=== PATIENT | female | born 1955 | race Caucasian/White ===

== ENCOUNTER 2021-06-28 17:40 | Observation (INO) ==
[2021-06-28] MEDS ORDERED: ASPIRIN 325 MG TABLET PO STA (18:06)
[2021-06-28 18:43] LABS: Basophils # 0.1 10*3/uL (0.0-0.2); Basophils % 0.6 % (0.0-0.8); Eosinophils % 0.1 % (0.00-10.9); Hemoglobin 12.2 GM/DL (12.0-16.0); Immature Granulocytes % 2.1 %; Immature Granulocytes Absolute 0.48 #; Lymphocytes % 12.9 % (21.3-54.2); Mean Corpuscular HGB Conc 31.3 GM/DL (32-36); Monocytes % 14.7 % (1.7-12.7); Neutrophils % 69.6 % (38.7-73.9); Platelet Count 226 T/CUMM (130-400); Red Blood Count 4.15 MC/CUMM (3.8-5.5); Red Cell Distribution Width 15.7 % (9.3-17.3); White Blood Count 22.9 T/CUMM (4-12)
[2021-06-28 18:55] LABS: INR 1.2
[2021-06-28 19:01] LABS: Albumin 4.1 G/DL (3.4-5.0); Bilirubin,Total 0.4 MG/DL (0.20-1.00); Calcium 9.1 MG/DL (8.5-10.1); Osmolality,Calculated 274.1 MOS/KG (273-304); Potassium 4.5 MMOL/L (3.5-5.1); Total Protein 6.8 G/DL (6.4-8.2)
[2021-06-28 19:20] LABS: Lymphocytes 17 % (20-55); Segmented Neutrophils 70 % (50-85); Total Cells Counted 100
[2021-06-28 19:21] LABS: Anisocytosis Slight; Hypochromasia Slight; Macrocytosis Slight; Microcytosis Slight; Platelet Estimate Normal
[2021-06-28] MEDS ORDERED: ENOXAPARIN 60 MG/0.6 ML SYRINGE SUBCUT STA (19:28)
[2021-06-28] MEDS ORDERED: ENOXAPARIN 80 MG/0.8 ML SYRINGE SUBCUT ONE (19:30)
[2021-06-28] MEDS ORDERED: SODIUM CHLORIDE 0.9% 1,000 ML IV STA (19:31)
[2021-06-28] MEDS ORDERED: ONDANSETRON 4 MG/2 ML VIAL IV PRN (20:06)
[2021-06-28] MEDS ORDERED: DEXTROSE 50% 25 GM/50 ML VIAL IV PRN (20:06)
[2021-06-28] MEDS ORDERED: GLUCAGON 1 MG VIAL IM PRN (20:06)
[2021-06-28] MEDS ORDERED: hydrALAZINE 20 MG/1 ML VIAL IV PRN (20:06)
[2021-06-28] MEDS ORDERED: ACETAMINOPHEN 325 MG TABLET PO PRN (20:06)
[2021-06-28] MEDS ORDERED: MORPHINE 2 MG/1 ML SYRINGE IV PRN (20:43)
[2021-06-28] MEDS ORDERED: traMADol 50 MG TABLET PO PRN (20:45)
[2021-06-28] MEDS: SODIUM CHLORIDE 0.9% 1,000 ML IV SCH (21:16)
[2021-06-28] MEDS: CLORAZEPATE 3.75 MG TABLET PO SCH (22:38)
[2021-06-29] MEDS: SODIUM CHLORIDE 0.9% 1,000 ML IV SCH ×3 (04:40→14:01)
[2021-06-29 06:43] LABS: Basophils # 0.1 10*3/uL (0.0-0.2); Basophils % 0.8 % (0.0-0.8); Eosinophils # 0.1 10*3/uL (0.0-0.87); Eosinophils % 0.4 % (0.00-10.9); Immature Granulocytes % 1.7 %; Immature Granulocytes Absolute 0.29 #; Lymphocytes # 3.6 10*3/uL (1.4-4.0); Lymphocytes % 21.6 % (21.3-54.2); Mean Corpuscular HGB Conc 30.9 GM/DL (32-36); Mean Corpuscular Volume 93.8 FL (87-102); Mean Platelet Volume 12.8 FL (9.6-12.0); Monocytes % 15.6 % (1.7-12.7); Neutrophils % 59.9 % (38.7-73.9); Platelet Count 193 T/CUMM (130-400); Red Blood Count 3.52 MC/CUMM (3.8-5.5); Red Cell Distribution Width 15.7 % (9.3-17.3); White Blood Count 16.6 T/CUMM (4-12)
[2021-06-29 06:44] LABS: Hemoglobin 10.2 GM/DL (12.0-16.0)
[2021-06-29 07:02] LABS: Hypochromasia 1+; Lymphocytes 24 % (20-55); Microcytosis 1+; Platelet Estimate Adequate; Segmented Neutrophils 63 % (50-85); Total Cells Counted 100
[2021-06-29 07:05] LABS: Calcium 8.8 MG/DL (8.5-10.1); Osmolality,Calculated 277.7 MOS/KG (273-304); Potassium 4.2 MMOL/L (3.5-5.1); Risk Ratio 6.36; Thyroid Stimulating Hormone 2.98 uIU/ml (0.358-3.74); VLDL Cholesterol 23.8 MG/DL
[2021-06-29] MEDS ORDERED: ENOXAPARIN 100 MG/ML SYRINGE SUBCUT SCH (08:00)
[2021-06-29] MEDS: allopurinoL 300 MG TABLET PO SCH (09:56)
[2021-06-29] MEDS: ASPIRIN 325 MG TABLET PO SCH (09:57)
[2021-06-29] MEDS: CLORAZEPATE 3.75 MG TABLET PO SCH ×2 (09:57→21:58)
[2021-06-29] MEDS: PANTOPRAZOLE 40 MG TABLET PO SCH (09:57)
[2021-06-29] MEDS: FERROUS SULFATE 325 MG TABLET PO SCH (09:57)
[2021-06-29] MEDS: amLODIPine 5 MG TABLET PO SCH (15:48)
[2021-06-30] MEDS: SODIUM CHLORIDE 0.9% 1,000 ML IV SCH (03:14)
[2021-06-30] MEDS: allopurinoL 300 MG TABLET PO SCH (09:23)
[2021-06-30] MEDS: CLORAZEPATE 3.75 MG TABLET PO SCH ×2 (09:24→21:17)
[2021-06-30] MEDS: FERROUS SULFATE 325 MG TABLET PO SCH (09:24)
[2021-06-30] MEDS: amLODIPine 5 MG TABLET PO SCH (09:24)
[2021-06-30] MEDS: ASPIRIN 325 MG TABLET PO SCH (09:24)
[2021-06-30] MEDS: PANTOPRAZOLE 40 MG TABLET PO SCH (09:25)
[2021-06-30 13:11] LABS: Basophils # 0.1 10*3/uL (0.0-0.2); Basophils % 0.6 % (0.0-0.8); Eosinophils # 0.1 10*3/uL (0.0-0.87); Eosinophils % 0.5 % (0.00-10.9); Hematocrit 33.7 VOL% (35.7-47.0); Hemoglobin 10.4 GM/DL (12.0-16.0); Immature Granulocytes % 2.2 %; Immature Granulocytes Absolute 0.38 #; Lymphocytes # 2.5 10*3/uL (1.4-4.0); Lymphocytes % 14.8 % (21.3-54.2); Mean Corpuscular HGB Conc 30.9 GM/DL (32-36); Mean Corpuscular Volume 94.9 FL (87-102); Mean Platelet Volume 13.2 FL (9.6-12.0); Monocytes % 14.2 % (1.7-12.7); Neutrophils % 67.7 % (38.7-73.9); Platelet Count 194 T/CUMM (130-400); Red Blood Count 3.55 MC/CUMM (3.8-5.5); Red Cell Distribution Width 15.7 % (9.3-17.3); White Blood Count 17.2 T/CUMM (4-12)
[2021-06-30 13:28] LABS: Calcium 8.7 MG/DL (8.5-10.1); Osmolality,Calculated 285.1 MOS/KG (273-304); Potassium 4.5 MMOL/L (3.5-5.1)
[2021-06-30 14:45] LABS: Hypochromasia 1+; Ovalocytes Few; Platelet Estimate Adequate; Polychromasia Slight
[2021-06-30 17:08] LABS: Bilirubin,Urine Negative (Negative); Blood, Urine Negative (Negative); Glucose,Urine (UA) Negative (Negative); Ketones,Urine Negative (Negative); Nitrite,Urine Negative (Negative); Protein,Urine Negative; RBC,Urine 1 /HPF (0-4); Squamous Epithelial Cell,Urine Occasional /HPF (0-10); Urine Appearance CLEAR (Clear); Urine Color Yellow (Yellow)
[2021-07-01 05:32] LABS: Basophils # 0.1 10*3/uL (0.0-0.2); Basophils % 0.9 % (0.0-0.8); Eosinophils # 0.1 10*3/uL (0.0-0.87); Eosinophils % 0.8 % (0.00-10.9); Hematocrit 31.1 VOL% (35.7-47.0); Hemoglobin 9.7 GM/DL (12.0-16.0); Immature Granulocytes % 2.3 %; Immature Granulocytes Absolute 0.31 #; Lymphocytes # 2.6 10*3/uL (1.4-4.0); Lymphocytes % 19.8 % (21.3-54.2); Mean Corpuscular HGB Conc 31.2 GM/DL (32-36); Mean Corpuscular Volume 93.1 FL (87-102); Mean Platelet Volume 12.8 FL (9.6-12.0); Monocytes % 17.9 % (1.7-12.7); Neutrophils % 58.3 % (38.7-73.9); Platelet Count 171 T/CUMM (130-400); Red Blood Count 3.34 MC/CUMM (3.8-5.5); Red Cell Distribution Width 15.5 % (9.3-17.3); White Blood Count 13.3 T/CUMM (4-12)
[2021-07-01 05:49] LABS: Calcium 8.6 MG/DL (8.5-10.1); Potassium 4.4 MMOL/L (3.5-5.1)
[2021-07-01 05:54] LABS: Eosinophils 1 % (0-10); Hypochromasia 1+; Lymphocytes 29 % (20-55); Microcytosis 1+; Platelet Estimate Adequate; Segmented Neutrophils 59 % (50-85); Total Cells Counted 100
[2021-07-01] MEDS ORDERED: LACTATED RINGERS 1,000 ML IV SCH (09:00)
[2021-07-01] MEDS ORDERED: CHOLECALCIFEROL 5,000 UNIT TABLET PO SCH (09:00)
[2021-07-01] MEDS ORDERED: ASCORBIC ACID 500 MG TABLET PO SCH (09:00)
[2021-07-01] MEDS: PANTOPRAZOLE 40 MG TABLET PO SCH (10:06)
[2021-07-01] MEDS: FERROUS SULFATE 325 MG TABLET PO SCH (10:06)
[2021-07-01] MEDS: allopurinoL 300 MG TABLET PO SCH (10:06)
[2021-07-01] MEDS: ASPIRIN 325 MG TABLET PO SCH (10:06)
[2021-07-01] MEDS: amLODIPine 5 MG TABLET PO SCH (10:16)
[2021-07-01 12:22] VITALS: BP 127/56
[2021-07-01] MEDS ORDERED: DICLOFENAC 1% GEL 100 GM TUBE TOP PRN (13:00)
[2021-07-01] MEDS: CLORAZEPATE 3.75 MG TABLET PO SCH (13:54)
== END 2021-07-01 17:51 | disposition home health service (06) ==
LOC: EDUNIT# → EDBD → N.EDINP 17:40 → N.ED 17:40 → SUATTDRO 20:06 → N.TELEN 20:56
PROVIDERS: ADMIT Internal Medicine; ATTEND Internal Medicine